=== PATIENT | male | born 1945 | race Caucasian/White ===

== ENCOUNTER 2019-08-20 | Emergency (ER) | payer MEDICARE, OTHER ==
[2019-08-20] MEDS ORDERED: SIMVASTATIN20 MG PO (18:04)
[2019-08-20] MEDS ORDERED: FINASTERIDE5 MG PO (18:05)
[2019-08-20 20:33] LABS: MYOGLOBIN 336 ng/mL (0 - 121)
[2019-08-20] MEDS ORDERED: PERCOCET 5/325M1 TAB PO (21:37)
[2019-08-20] MEDS ORDERED: ORPHENADRINE100 MG PO (21:37)
== END 2019-08-20 21:58 | disposition home or self-care (01) ==
PROVIDERS: Emergency Medicine
DX: M54.6 Pain in thoracic spine (principal); M79.602 Pain in left arm; R20.0 Anesthesia of skin